=== PATIENT | female | born 1955 | race Caucasian/White ===

== ENCOUNTER → 2016-10-23 | Outpatient (CLI) | payer MEDICARE, OTHER ==
[~2016-10-23] MED LIST: AMIT10TA6 PO; ASPI-556 PO; CITA20TA9 PO; CLON.1 PO; DOCU250C28 PO; FENO160T16 PO; GABA-318 PO; HYDROCODONE; INSU100C4 SQ; INSU100C6; METF1000 PO; OMEP20CA10 PO; SIMV40TA5 PO; TRAM-459 PO; VITA1CAP10 PO
== END | disposition home or self-care (01) ==
LOC: RADPV 09:05
PROVIDERS: ATTEND Hospitalist
DX: N18.3 Chronic kidney disease, stage 3 (moderate) (principal)
CPT/HCPCS: 76770

== ENCOUNTER 2017-03-15 12:52 | Emergency (ER) | payer MEDICARE, OTHER ==
[~2017-03-15] VITALS: Ht 162.6 cm; Wt 111.8 kg
[~2017-03-15 12:52] MED LIST changes: +CLON-570 PO; -CLON.1 PO; -INSU100C6; +INSU100C6 SQ
[2017-03-15] MEDS ORDERED: TRAM50TA4 PO (13:36)
[2017-03-15] MEDS ORDERED: LOPERAMIDE HCL 2 MG CAPSULE PO ONE (13:45)
[2017-03-15] MEDS ORDERED: SODIUM CHLORIDE 0.9% 1,000 ML IV ONE (13:45)
[2017-03-15 14:10] LABS: BASOPHILS % (AUTO) 0.4 % (0.0-2.0); EOSINOPHILS % (AUTO) 1.4 % (1.0-6.0); HEMATOCRIT 40.9 % (36-46); HEMOGLOBIN 13.8 g/dL (12.0-16.0); LYMPHOCYTES # (AUTO) 3.3 K/uL (1.0-4.8); LYMPHOCYTES % (AUTO) 34.1 % (22.0-44.0); MEAN CORPUSCULAR HEMOGLOBIN 30.4 pg (26.0-34.0); MEAN CORPUSCULAR HGB CONC 33.7 G/dL (31.0-37.0); MEAN CORPUSCULAR VOLUME 90 fL (80-100); MONOCYTES # (AUTO) 0.8 K/uL (0.1-1.0); MONOCYTES % (AUTO) 7.8 % (2.0-9.0); NEUTROPHILS # (AUTO) 5.4 K/uL (1.8-7.7); NEUTROPHILS % (AUTO) 56.3 % (40.0-70.0); PLATELET COUNT (AUTO) 168 K/uL (150-450); RED BLOOD CELL COUNT(AUTO) 4.53 MIL/uL (4.00-5.20); RED CELL DISTRIBUTION WIDTH 13.1 % (11.5-14.5); WHITE BLOOD COUNT (AUTO) 9.6 K/uL (4.5-11.0)
[2017-03-15 14:22] LABS: CALCIUM, TOTAL 9.9 mg/dL (8.8-10.5); CREATININE 1.88 mg/dL (0.60-1.30); POTASSIUM 4.3 mmol/L (3.5-5.1)
[2017-03-15] MEDS ORDERED: TraMADol HCL 50 MG TABLET PO ONE (14:30)
[2017-03-15 14:35] LABS: ALBUMIN 3.9 g/dL (3.4-5.0); BILIRUBIN,TOTAL 0.8 mg/dL (0.1-1.0); TOTAL PROTEIN, SERUM 7.7 g/dL (6.4-8.2)
[2017-03-15 15:09] VITALS: BP 96/56
== END 2017-03-15 15:42 | disposition home or self-care (01) ==
LOC: EMS 12:54
DX: R42 Dizziness and giddiness (principal); R19.7 Diarrhea, unspecified; E11.65 Type 2 diabetes mellitus with hyperglycemia; N28.9 Disorder of kidney and ureter, unspecified; I10 Essential (primary) hypertension
CPT/HCPCS: 36415; 71010; 80053; 84484; 85025; 93005; 96360; 99285; J7030

== ENCOUNTER 2018-08-24 22:04 | Emergency (ER) | payer MEDICARE, OTHER ==
[~2018-08-24 22:04] MED LIST changes: +CITA-106 PO; -CITA20TA9 PO; -GABA-318 PO; +GABA600T10 PO; -HYDROCODONE; -METF1000 PO; -TRAM-459 PO; +TRAM50TA4 PO
[2018-08-24 22:44] LABS: GLUCOSE,POINT OF CARE 137 MG/DL (70-110)
== END 2018-08-25 00:23 | disposition left against medical advice (07) ==
LOC: EMS 22:05
DX: S01.111A Laceration without foreign body of right eyelid and periocular area, initial encounter (principal); W19.XXXA Unspecified fall, initial encounter; Y93.89 Activity, other specified; Y92.89 Other specified places as the place of occurrence of the external cause; Y99.8 Other external cause status; Z53.21 Procedure and treatment not carried out due to patient leaving prior to being seen by health care provider

== ENCOUNTER → 2020-08-13 | Outpatient (CLI) | payer MEDICARE, OTHER ==
[~2020-08-13] MED LIST changes: -CITA-106 PO; +CITA-144 PO; -CLON-570 PO; +CLON0.1T2 PO; -OMEP20CA10 PO; +OMEP20CA12 PO; +SIMV-46 PO; -SIMV40TA5 PO
[2020-08-13 09:36] LABS: BASOPHILS % (AUTO) 0.4 % (0.0-2.0); EOSINOPHILS % (AUTO) 1.6 % (1.0-6.0); HEMATOCRIT 39.8 % (36-46); LYMPHOCYTES # (AUTO) 2.2 K/uL (1.0-4.8); LYMPHOCYTES % (AUTO) 24.4 % (22.0-44.0); MEAN CORPUSCULAR HEMOGLOBIN 29.3 pg (26.0-34.0); MEAN CORPUSCULAR HGB CONC 32.8 G/dL (31.0-37.0); MEAN CORPUSCULAR VOLUME 90 fL (80-100); MONOCYTES # (AUTO) 0.9 K/uL (0.1-1.0); MONOCYTES % (AUTO) 9.4 % (2.0-9.0); NEUTROPHILS # (AUTO) 5.8 K/uL (1.8-7.7); NEUTROPHILS % (AUTO) 64.2 % (40.0-70.0); PLATELET COUNT (AUTO) 167 K/uL (150-450); RED BLOOD CELL COUNT(AUTO) 4.44 MIL/uL (4.00-5.20); RED CELL DISTRIBUTION WIDTH 14.2 % (11.5-14.5)
[2020-08-13 09:39] LABS: CREATININE 1.71 mg/dL (0.60-1.30); POTASSIUM 4.2 mmol/L (3.5-5.1)
[2020-08-13 09:40] LABS: APPEARANCE,URINE CLOUDY (CLEAR); BILIRUBIN,URINE NEGATIVE (NEGATIVE); CREATININE,URINE RANDOM 142.8 mg/dL (30.0-125.0); GLUCOSE, URINE (UA) NEGATIVE (NEGATIVE); KETONES,URINE NEGATIVE (NEGATIVE); LEUKOCYTE ESTERASE ,URINE TRACE (NEGATIVE); NITRATE,URINE POSITIVE (NEGATIVE); OCCULT BLOOD,URINE NEGATIVE (NEGATIVE); PROTEIN,URINE TRACE (NEGATIVE); PROTEIN,URINE RANDOM 39 mg/dL (0-11.9)
[2020-08-13 09:40] LABS: ALBUMIN 3.9 g/dL (3.4-5.0); CALCIUM, TOTAL 9.8 mg/dL (8.8-10.5); PHOSPHORUS 4.2 mg/dL (2.5-4.9)
[2020-08-13 09:49] LABS: BACTERIA,URINE Many /HPF (None Seen); RBC,URINE None Seen /HPF (0-2); SQUAMOUS EPITHELIAL CELL,UR Moderate /LPF (None Seen); WBC,URINE 0-2 /HPF (0-5)
== END | disposition home or self-care (01) ==
LOC: LABPV 07:41
PROVIDERS: ATTEND Hospitalist
DX: E11.22 Type 2 diabetes mellitus with diabetic chronic kidney disease (principal); N18.4 Chronic kidney disease, stage 4 (severe); I51.9 Heart disease, unspecified; R80.9 Proteinuria, unspecified
CPT/HCPCS: 80069; 81001; 82043; 82306; 82570; 83036; 83970; 84155; 84156; 84165; 84166; 85025; 86335; 87086

== ENCOUNTER 2021-06-11 05:38 | Day surgery (SDC) | payer MEDICARE, MEDICAID ==
[2021-06-09 12:32] LABS: COVID AG,FIA SOURCE NASAL SWAB
[~2021-06-11] VITALS: Ht 162.6 cm; Wt 115.4 kg
[~2021-06-11 05:38] MED LIST changes: +RINGERS SOLUTION,LACTATED 1,000 ML IV ONE; +RINGERS SOLUTION,LACTATED 500 ML IV ONE
[2021-06-11] MEDS ORDERED: TETRACAINE HCL/PF 0.5% 4 ML OPHTHALMIC SOLUTION OS ONE (05:39)
[2021-06-11] MEDS ORDERED: BALANCED SALT 15 ML OPHTHALMIC IRRIG.SOLN OS ONE (05:39)
[2021-06-11] MEDS ORDERED: CHONDR SULF A SOD/HYALURONATE 1.05 ML KIT IO ONE (05:39)
[2021-06-11] MEDS ORDERED: RINGERS SOLUTION,LACTATED 500 ML IV ONE (05:43)
[2021-06-11] MEDS ORDERED: MOXIFLOXACIN HCL 0.5% 3 ML OPHTHALMIC SOLUTION ONE (05:43)
[2021-06-11] MEDS ORDERED: PHENYLEPHRINE HCL 2.5% 2 ML OPHTHALMIC SOLUTION ONE (05:43)
[2021-06-11 05:57] LABS: COVID AG,FIA SOURCE NASOPHARYNGEAL
[2021-06-11] MEDS ORDERED: BUPIVACAINE HCL/PF 0.75% 10 ML VIAL ONE (06:18)
[2021-06-11] MEDS ORDERED: POVIDONE-IODINE 10% 15 ML SOLUTION UD ONE (06:18)
[2021-06-11] MEDS ORDERED: BALANCED SALT 15 ML OPHTHALMIC IRRIG.SOLN ONE (06:18)
[2021-06-11] MEDS ORDERED: LIDOCAINE/PF 1% 2 ML VIAL ONE ×2 (06:18→06:19)
[2021-06-11] MEDS ORDERED: NEOMYCIN/POLYMYXIN B/DEXAMETH 3.5 GM OPHTHALMIC OINTMENT ONE (06:18)
[2021-06-11] MEDS ORDERED: HYALURONIDASE, HUMAN RECOMB. 150 UNITS/ML ONE (06:19)
[2021-06-11] MEDS: DEXAMETHASONE 0.1% 5 ML OPHTHALMIC SOLUTION OS ONE ×2 (06:26→07:48)
[2021-06-11] MEDS: PHENYLEPHRINE HCL 2.5% 2 ML OPHTHALMIC SOLUTION OS SCH ×3 (06:27→06:39)
[2021-06-11] MEDS: MOXIFLOXACIN HCL 0.5% 3 ML OPHTHALMIC SOLUTION OS SCH ×4 (06:27→07:44)
[2021-06-11] MEDS ORDERED: DEXAMETHASONE SOD PHOS 4 MG/ML VIAL ONE (06:45)
[2021-06-11 06:51] LABS: GLUCOMETER DEV NAME(LOC) SDS.; GLUCOSE,POINT OF CARE 155 MG/DL (70-110)
[2021-06-11] MEDS ORDERED: SODIUM CHLORIDE 0.9% 10 ML ONE (06:54)
[2021-06-11] MEDS ORDERED: AMLO2.5T29 PO (07:53)
[2021-06-11] MEDS ORDERED: AMIT50TA3 PO (07:53)
[2021-06-11] MEDS ORDERED: ATOR40TA71 PO (07:54)
[2021-06-11] MEDS ORDERED: NITR0.4T52 SL (07:58)
[2021-06-11] MEDS ORDERED: SEMA0.25 SQ (07:58)
[2021-06-11] MEDS ORDERED: LEVO25TA9 PO (07:58)
[2021-06-11] MEDS ORDERED: LIDOCAINE/PF 2% 5 ML VIAL IM ONE (12:00)
[2021-06-11] MEDS ORDERED: DiphenhydrAMINE HCL 50 MG/ML VIAL IVP ONE (12:00)
[2021-06-11] MEDS ORDERED: FentaNYL CITRATE PF 100 MCG/2 ML VIAL IVP ONE (12:00)
[2021-06-11] MEDS ORDERED: PROPOFOL 1% 20 ML VIAL IVP ONE (12:00)
[2021-06-11] MEDS ORDERED: MIDAZOLAM HCL 2 MG/2 ML VIAL IVP ONE (12:00)
== END 2021-06-11 08:40 | disposition home or self-care (01) ==
LOC: SURGERY 05:38
PROVIDERS: ATTEND Ophthalmology
DX: H40.53X0 Glaucoma secondary to other eye disorders, bilateral, stage unspecified (principal); E10.3313 Type 1 diabetes mellitus with moderate nonproliferative diabetic retinopathy with macular edema, bilateral; H35.81 Retinal edema; H26.493 Other secondary cataract, bilateral; H43.12 Vitreous hemorrhage, left eye; H04.123 Dry eye syndrome of bilateral lacrimal glands; E10.9 Type 1 diabetes mellitus without complications; I11.0 Hypertensive heart disease with heart failure; I50.9 Heart failure, unspecified; E66.9 Obesity, unspecified; Z20.822 Contact with and (suspected) exposure to COVID-19; Z79.4 Long term (current) use of insulin; Z79.899 Other long term (current) drug therapy; Z87.891 Personal history of nicotine dependence; Z88.8 Allergy status to other drugs, medicaments and biological substances; Z91.040 Latex allergy status; Z96.1 Presence of intraocular lens; Z98.890 Other specified postprocedural states
CPT/HCPCS: 66180; 82962; 87426 ×2; 93005 ×2; C1716; C9803 ×2; J0690; J1200; J2250; J2704; J3010; J3473; J3490 ×3; J7120 ×2; Q9967; J1100

== ENCOUNTER 2021-10-01 05:25 | Day surgery (SDC) | payer MEDICARE, OTHER ==
[~2021-10-01] VITALS: Ht 162.6 cm; Wt 111.8 kg
[~2021-10-01 05:25] MED LIST changes: -AMIT10TA6 PO; +AMLO-257 PO; -ASPI-556 PO; +ATOR40TA71 PO; +BRIM15DR8 OS; +CHOL200059 PO; -CITA-144 PO; -CLON0.1T2 PO; -DOCU250C28 PO; +DULO-114 PO; -FENO160T16 PO; +FURO20 PO; -GABA600T10 PO; -INSU100C4 SQ; -INSU100C6 SQ; +INSU100I3 SQ; +LEVO25TA9 PO; +NITR0.4T52 SL; -RINGERS SOLUTION,LACTATED 1,000 ML IV ONE; -SIMV-46 PO; +TIMO10DR28 OS; -TRAM50TA4 PO; -VITA1CAP10 PO; +[UNRECOGNIZED DRUG - CODE] PO
[2021-10-01] MEDS ORDERED: PROPOFOL 1% 20 ML VIAL IVP ONE (05:26)
[2021-10-01] MEDS ORDERED: TETRACAINE HCL/PF 0.5% 4 ML OPHTHALMIC SOLUTION OD ONE (05:26)
[2021-10-01] MEDS ORDERED: BUPIVACAINE HCL/PF 0.75% 10 ML VIAL CAUDAL ONE (05:26)
[2021-10-01] MEDS ORDERED: POVIDONE-IODINE 10% 15 ML SOLUTION UD TP ONE (05:26)
[2021-10-01] MEDS ORDERED: HYALURONIDASE, HUMAN RECOMB. 150 UNITS/ML ID ONE (05:26)
[2021-10-01] MEDS ORDERED: LIDOCAINE/PF 1% 2 ML VIAL CAUDAL ONE (05:26)
[2021-10-01] MEDS ORDERED: BALANCED SALT 15 ML OPHTHALMIC IRRIG.SOLN IO ONE (05:26)
[2021-10-01] MEDS ORDERED: LIDOCAINE/PF 2% 5 ML VIAL IM ONE (05:26)
[2021-10-01] MEDS ORDERED: NEOMYCIN/POLYMYXIN B/DEXAMETH 3.5 GM OPHTHALMIC OINTMENT OD ONE (05:26)
[2021-10-01] MEDS ORDERED: MOXIFLOXACIN HCL 0.5% 3 ML OPHTHALMIC SOLUTION ONE (05:35)
[2021-10-01] MEDS ORDERED: PHENYLEPHRINE HCL 2.5% 2 ML OPHTHALMIC SOLUTION ONE (05:35)
[2021-10-01] MEDS ORDERED: RINGERS SOLUTION,LACTATED 500 ML IV ONE (05:36)
[2021-10-01] MEDS: MOXIFLOXACIN HCL 0.5% 3 ML OPHTHALMIC SOLUTION OS SCH ×4 (06:05→07:50)
[2021-10-01] MEDS: PHENYLEPHRINE HCL 2.5% 2 ML OPHTHALMIC SOLUTION OS SCH ×3 (06:05→06:21)
[2021-10-01] MEDS ORDERED: BUPIVACAINE HCL/PF 0.75% 10 ML VIAL ONE (06:10)
[2021-10-01] MEDS ORDERED: NEOMYCIN/POLYMYXIN B/DEXAMETH 3.5 GM OPHTHALMIC OINTMENT ONE (06:10)
[2021-10-01] MEDS ORDERED: SODIUM CHLORIDE 0.9% 10 ML ONE (06:10)
[2021-10-01] MEDS ORDERED: HYALURONIDASE, HUMAN RECOMB. 150 UNITS/ML ONE (06:11)
[2021-10-01] MEDS ORDERED: LIDOCAINE/PF 1% 2 ML VIAL IM ONE (06:15)
[2021-10-01 06:16] LABS: COVID AG,FIA SOURCE NASOPHARYNGEAL
[2021-10-01 06:22] LABS: GLUCOMETER DEV NAME(LOC) SDS.; GLUCOSE,POINT OF CARE 223 MG/DL (70-110)
[2021-10-01] MEDS ORDERED: DEXAMETHASONE 0.1% 5 ML OPHTHALMIC SOLUTION OS ONE (06:30)
[2021-10-01] MEDS ORDERED: POVIDONE-IODINE 10% 15 ML SOLUTION UD ONE (06:45)
[2021-10-01] MEDS ORDERED: TETRACAINE HCL/PF 0.5% 4 ML OPHTHALMIC SOLUTION ONE ×2 (06:45→06:46)
[2021-10-01] MEDS ORDERED: FentaNYL CITRATE PF 100 MCG/2 ML VIAL IVP ONE (12:00)
[2021-10-01] MEDS ORDERED: MIDAZOLAM HCL 2 MG/2 ML VIAL IVP ONE (12:00)
== END 2021-10-01 09:10 | disposition home or self-care (01) ==
LOC: SURGERY 05:25
PROVIDERS: ATTEND Ophthalmology
DX: E11.39 Type 2 diabetes mellitus with other diabetic ophthalmic complication (principal); H42 Glaucoma in diseases classified elsewhere; I10 Essential (primary) hypertension; E11.3513 Type 2 diabetes mellitus with proliferative diabetic retinopathy with macular edema, bilateral; Z79.899 Other long term (current) drug therapy; Z88.8 Allergy status to other drugs, medicaments and biological substances; Z98.890 Other specified postprocedural states
CPT/HCPCS: 66184; 82962; 87426; C9803; J0690; J2250; J3010; J3473; J3490 ×2; J7120; J2704

== ENCOUNTER 2022-11-30 19:57 | Emergency (ER) | payer MEDICARE, OTHER ==
[~2022-11-30] VITALS: Ht 175.3 cm; Wt 130.0 kg
[~2022-11-30 19:57] MED LIST changes: +COSO10OS OS; -RINGERS SOLUTION,LACTATED 500 ML IV ONE; -TIMO10DR28 OS
[2022-11-30 20:31] VITALS: BP 126/62; PULSE 74; RESP 17; TEMP 99
== END 2022-11-30 21:28 | disposition left against medical advice (07) ==
LOC: EMS 19:57
DX: Z53.21 Procedure and treatment not carried out due to patient leaving prior to being seen by health care provider (principal)
CPT/HCPCS: 99281; Z7502

== ENCOUNTER 2023-01-26 16:55 | Inpatient (IN) | payer MEDICARE, OTHER ==
[~2023-01-26] VITALS: Ht 157.5 cm; Wt 124.1 kg
[~2023-01-26 16:55] MED LIST changes: -BRIM15DR8 OS; +BRIM5DRO9 OS
[2023-01-26] MEDS ORDERED: DEXTROSE 5%-0.45% SODIUM CHL 1,000 ML IV ONE (17:15)
[2023-01-26] MEDS ORDERED: DEXTROSE 50%-WATER 25 GM/50 ML SYRINGE IVP ONE ×2 (17:15→18:45)
[2023-01-26] MEDS ORDERED: DORZ10DR10 OS (17:20)
[2023-01-26] MEDS ORDERED: DULA4.5P SQ (17:20)
[2023-01-26] MEDS ORDERED: INSU100I24 SQ (17:20)
[2023-01-26] MEDS ORDERED: AMLO10TA55 PO (17:20)
[2023-01-26] MEDS ORDERED: EMPA25TA3 PO (17:20)
[2023-01-26] MEDS ORDERED: DULO-113 PO (17:20)
[2023-01-26 17:33] LABS: CALCIUM, TOTAL 9.6 mg/dL (8.8-10.5); CREATININE 1.18 mg/dL (0.60-1.30); POTASSIUM 4.1 mmol/L (3.5-5.1)
[2023-01-26 17:36] LABS: GLUCOMETER DEV NAME(LOC) ER.6; GLUCOSE,POINT OF CARE 110 MG/DL (70-110)
[2023-01-26 17:41] LABS: TROPONIN I-HIGH SENSITIVITY 17 ng/L (<51)
[2023-01-26 17:59] LABS: ALBUMIN 3.7 g/dL (3.4-5.0); BASOPHILS % (AUTO) 0.4 % (0.0-2.0); BILIRUBIN,TOTAL 0.7 mg/dL (0.1-1.0); EOSINOPHILS % (AUTO) 1.8 % (1.0-6.0); HEMATOCRIT 42.6 % (36-46); LYMPHOCYTES % (AUTO) 14.5 % (22.0-44.0); MEAN CORPUSCULAR HEMOGLOBIN 31.5 pg (26.0-34.0); MEAN CORPUSCULAR HGB CONC 32.9 G/dL (31.0-37.0); MEAN CORPUSCULAR VOLUME 96 fL (80-100); MONOCYTES # (AUTO) 0.5 K/uL (0.1-1.0); MONOCYTES % (AUTO) 6.9 % (2.0-9.0); NEUTROPHILS # (AUTO) 5.2 K/uL (1.8-7.7); NEUTROPHILS % (AUTO) 76.4 % (40.0-70.0); PLATELET COUNT (AUTO) 128 K/uL (150-450); RED BLOOD CELL COUNT(AUTO) 4.45 MIL/uL (4.00-5.20); RED CELL DISTRIBUTION WIDTH 13.9 % (11.5-14.5); TOTAL PROTEIN, SERUM 7.5 g/dL (6.4-8.2); WHITE BLOOD COUNT (AUTO) 6.8 K/uL (4.5-11.0)
[2023-01-26 18:24] LABS: APPEARANCE,URINE CLEAR (CLEAR); BILIRUBIN,URINE NEGATIVE (NEGATIVE); COLOR,URINE LIGHT YELLOW (YELLOW); GLUCOSE, URINE (UA) 300-500 mg/dL (NEGATIVE); KETONES,URINE NEGATIVE (NEGATIVE); LEUKOCYTE ESTERASE ,URINE NEGATIVE (NEGATIVE); NITRATE,URINE NEGATIVE (NEGATIVE); OCCULT BLOOD,URINE NEGATIVE (NEGATIVE); PH,URINE 5.5 (5.0-8.0); PROTEIN,URINE 30-70 mg/dL (NEGATIVE); SPECIFIC GRAVITIY, URINE 1.005 (1.003-1.030); UROBILINOGEN,URINE <=1.0 mg/dL (<=1.0)
[2023-01-26 18:35] LABS: BACTERIA,URINE None Seen /HPF (None Seen); RBC,URINE None Seen /HPF (0-2); SQUAMOUS EPITHELIAL CELL,UR Few /LPF (None Seen); WBC,URINE None Seen /HPF (0-5)
[2023-01-26] MEDS ORDERED: DEXTROSE 50%-WATER 25 GM/50 ML SYRINGE IVP PRN (19:15)
[2023-01-26] MEDS ORDERED: ONDANSETRON HCL 4 MG/2 ML VIAL IVP PRN (19:15)
[2023-01-26 19:21] LABS: GLUCOMETER DEV NAME(LOC) ERT.5; GLUCOSE,POINT OF CARE 138 MG/DL (70-110)
[2023-01-26 19:21] LABS: GLUCOMETER DEV NAME(LOC) ERT.5; GLUCOSE,POINT OF CARE 134 MG/DL (70-110)
[2023-01-26 19:21] LABS: GLUCOMETER DEV NAME(LOC) ERT.5; GLUCOSE,POINT OF CARE 64 MG/DL (70-110)
[2023-01-26 19:21] LABS: GLUCOMETER DEV NAME(LOC) ERT.5; GLUCOSE,POINT OF CARE 80 MG/DL (70-110)
[2023-01-26 19:41] LABS: GLUCOMETER DEV NAME(LOC) ERT.5; GLUCOSE,POINT OF CARE 96 MG/DL (70-110)
[2023-01-26] MEDS ORDERED: HYDROCODONE/ACETAMINOPHEN 5-325 MG TABLET PO ONE (20:30)
[2023-01-26] MEDS: DOCUSATE SODIUM 100 MG CAPSULE PO SCH (21:00)
[2023-01-26 21:31] VITALS: O2SAT 98
[2023-01-26 22:07] LABS: GLUCOMETER DEV NAME(LOC) ERT.5; GLUCOSE,POINT OF CARE 114 MG/DL (70-110)
[2023-01-26] MEDS ORDERED: NITROGLYCERIN 0.4 MG SUBLINGUAL TABLET #25 SL PRN (23:30)
[2023-01-26 23:48] VITALS: BP 193/93; PULSE 71; RESP 20; TEMP 98.4
[2023-01-27] MEDS: SODIUM CHLORIDE 154 MEQ in DEXTROSE 10%-WATER 1,000 ML IV SCH (02:17)
[2023-01-27] MEDS ORDERED: HydrALAZINE HCL 20 MG/ML VIAL IVP PRN (04:30)
[2023-01-27 05:20] VITALS: BP 146/79; PULSE 69; RESP 18; TEMP 98.2
[2023-01-27 06:29] LABS: BASOPHILS % (AUTO) 0.3 % (0.0-2.0); EOSINOPHILS % (AUTO) 2.1 % (1.0-6.0); HEMATOCRIT 39.3 % (36-46); HEMOGLOBIN 12.9 g/dL (12.0-16.0); LYMPHOCYTES # (AUTO) 1.9 K/uL (1.0-4.8); LYMPHOCYTES % (AUTO) 20.7 % (22.0-44.0); MEAN CORPUSCULAR HEMOGLOBIN 31.5 pg (26.0-34.0); MEAN CORPUSCULAR VOLUME 96 fL (80-100); MONOCYTES # (AUTO) 0.9 K/uL (0.1-1.0); MONOCYTES % (AUTO) 10.1 % (2.0-9.0); NEUTROPHILS # (AUTO) 6.2 K/uL (1.8-7.7); NEUTROPHILS % (AUTO) 66.8 % (40.0-70.0); PLATELET COUNT (AUTO) 143 K/uL (150-450); RED BLOOD CELL COUNT(AUTO) 4.11 MIL/uL (4.00-5.20); RED CELL DISTRIBUTION WIDTH 13.5 % (11.5-14.5); WHITE BLOOD COUNT (AUTO) 9.3 K/uL (4.5-11.0)
[2023-01-27 06:41] LABS: CALCIUM, TOTAL 9.1 mg/dL (8.8-10.5); CREATININE 1.24 mg/dL (0.60-1.30); MAGNESIUM 2.4 mg/dL (1.80-2.40); POTASSIUM 4.1 mmol/L (3.5-5.1)
[2023-01-27 08:08] VITALS: BP 112/60; PULSE 75; RESP 20; TEMP 98.6
[2023-01-27] MEDS: LEVOTHYROXINE SODIUM 25 MCG TABLET PO SCH (08:17)
[2023-01-27] MEDS: DULoxetine HCL 60 MG CAPSULE PO SCH (08:27)
[2023-01-27] MEDS: DORZOLAMIDE/TIMOLOL 2-0.5% [22.3-6.8MG/ML] 10 ML OPHTHALMIC SOLUTION OS SCH ×3 (08:27→21:18)
[2023-01-27] MEDS: METHAZOLAMIDE 50 MG TABLET PO SCH ×3 (08:28→21:18)
[2023-01-27] MEDS: ATORVASTATIN CALCIUM 40 MG TABLET PO SCH (08:28)
[2023-01-27] MEDS: AmLODIPine BESYLATE 10 MG TABLET PO SCH (08:29)
[2023-01-27] MEDS: CHOLECALCIFEROL (VIT D3) 2,000 UNITS [50 MCG] TABLET PO SCH (08:30)
[2023-01-27] MEDS: DOCUSATE SODIUM 100 MG CAPSULE PO SCH ×2 (08:33→21:00)
[2023-01-27 11:41] LABS: GLUCOMETER DEV NAME(LOC) 5N.2C; GLUCOSE,POINT OF CARE 128 MG/DL (70-110)
[2023-01-27 11:52] VITALS: BP 135/80; PULSE 75; RESP 20; TEMP 98.2
[2023-01-27 13:41] LABS: GLUCOMETER DEV NAME(LOC) 5N.1C; GLUCOSE,POINT OF CARE 159 MG/DL (70-110)
[2023-01-27] MEDS ORDERED: LORazepam 2 MG/ML VIAL IVP ONE (15:00)
[2023-01-27 19:42] VITALS: BP 130/68; PULSE 69; RESP 18; TEMP 98.5
[2023-01-27 22:17] LABS: ABG BASE EXCESS -0.6 mmol/L (-2.0-3.0); ABG CARBOXYHEMOGLOBIN 1.1 % (0.0-1.5); ABG HCO3 23.9 mmol/L (22.0-26.0); ABG METHEMOGLOBIN 0.3 % (0.0-1.5); ABG OXYGEN CONTENT 18.2 mL/dL (15.0-23.0); ABG OXYGEN SATURATION 94.5 % (95.0-98.0); ABG OXYHEMOGLOBIN 93.2 % (94.0-100.0); ABG PCO2 42 mmHg (35-45); ABG PH 7.384 (7.35-7.450); ABG TOTAL HEMOGLOBIN 13.9 G/dL (12.0-18.0); PO2, ARTERIAL BG 69.3 mmHg (79.0-87.0); SOURCE, BLOOD GAS ARTERIAL; TEMPERATURE, FAHRENHEIT, BG 98.5 FAHREN (96.0-98.6)
[2023-01-27 22:18] LABS: ABG A-A DIFF O2 30.4 mmHg (10-20.0); O2 DEVICE,BLOOD GAS ROOM AIR (ROOM AIR); SITE, BLOOD GAS LFT BRACHIAL
[2023-01-27 22:55] LABS: GLUCOMETER DEV NAME(LOC) 5N.2C; GLUCOSE,POINT OF CARE 136 MG/DL (70-110)
[2023-01-27 22:56] LABS: GLUCOMETER DEV NAME(LOC) 5N.2C; GLUCOSE,POINT OF CARE 199 MG/DL (70-110)
[2023-01-27 22:57] LABS: GLUCOMETER DEV NAME(LOC) 5N.1C; GLUCOSE,POINT OF CARE 145 MG/DL (70-110)
[2023-01-28 00:17] VITALS: BP 121/68; PULSE 68; RESP 18; TEMP 98.6
[2023-01-28] MEDS: SODIUM CHLORIDE 154 MEQ in DEXTROSE 10%-WATER 1,000 ML IV SCH (04:48)
[2023-01-28 05:14] VITALS: BP 126/84; PULSE 68; RESP 19; TEMP 98.5
[2023-01-28] MEDS: LEVOTHYROXINE SODIUM 25 MCG TABLET PO SCH (06:30)
[2023-01-28 06:36] LABS: BASOPHILS % (AUTO) 0.5 % (0.0-2.0); EOSINOPHILS % (AUTO) 2.7 % (1.0-6.0); HEMATOCRIT 38.6 % (36-46); HEMOGLOBIN 12.7 g/dL (12.0-16.0); LYMPHOCYTES # (AUTO) 1.6 K/uL (1.0-4.8); LYMPHOCYTES % (AUTO) 18.9 % (22.0-44.0); MEAN CORPUSCULAR HEMOGLOBIN 31.5 pg (26.0-34.0); MEAN CORPUSCULAR HGB CONC 32.9 G/dL (31.0-37.0); MEAN CORPUSCULAR VOLUME 96 fL (80-100); MONOCYTES # (AUTO) 0.7 K/uL (0.1-1.0); MONOCYTES % (AUTO) 8.2 % (2.0-9.0); NEUTROPHILS # (AUTO) 5.9 K/uL (1.8-7.7); NEUTROPHILS % (AUTO) 69.7 % (40.0-70.0); PLATELET COUNT (AUTO) 130 K/uL (150-450); RED BLOOD CELL COUNT(AUTO) 4.03 MIL/uL (4.00-5.20); RED CELL DISTRIBUTION WIDTH 13.9 % (11.5-14.5); WHITE BLOOD COUNT (AUTO) 8.5 K/uL (4.5-11.0)
[2023-01-28 07:01] LABS: ALBUMIN 2.9 g/dL (3.4-5.0); BILIRUBIN,TOTAL 0.8 mg/dL (0.1-1.0); CALCIUM, TOTAL 9.1 mg/dL (8.8-10.5); CREATININE 1.32 mg/dL (0.60-1.30); POTASSIUM 4.5 mmol/L (3.5-5.1); TOTAL PROTEIN, SERUM 6.3 g/dL (6.4-8.2)
[2023-01-28 07:03] LABS: TROPONIN I-HIGH SENSITIVITY 16 ng/L (<51)
[2023-01-28 07:28] VITALS: BP 128/86; PULSE 70; RESP 20; TEMP 98.4
[2023-01-28] MEDS: HEPARIN SODIUM,PORCINE 5,000 UNITS/ML VIAL SQ SCH ×4 (08:00→23:43)
[2023-01-28] MEDS: AmLODIPine BESYLATE 10 MG TABLET PO SCH (08:37)
[2023-01-28] MEDS: DULoxetine HCL 60 MG CAPSULE PO SCH (08:37)
[2023-01-28] MEDS: CHOLECALCIFEROL (VIT D3) 2,000 UNITS [50 MCG] TABLET PO SCH (08:38)
[2023-01-28] MEDS: ATORVASTATIN CALCIUM 40 MG TABLET PO SCH (08:38)
[2023-01-28] MEDS: METHAZOLAMIDE 50 MG TABLET PO SCH ×3 (08:38→23:55)
[2023-01-28] MEDS: DORZOLAMIDE/TIMOLOL 2-0.5% [22.3-6.8MG/ML] 10 ML OPHTHALMIC SOLUTION OS SCH ×3 (08:40→20:07)
[2023-01-28] MEDS: DOCUSATE SODIUM 100 MG CAPSULE PO SCH ×2 (08:40→20:07)
[2023-01-28] MEDS ORDERED: OMEPRAZOLE 20 MG CAPSULE PO SCH (09:00)
[2023-01-28 11:00] VITALS: BP 124/74; PULSE 68; RESP 18; TEMP 98.6
[2023-01-28 11:26] LABS: GLUCOMETER DEV NAME(LOC) 5S.1B; GLUCOSE,POINT OF CARE 153 MG/DL (70-110)
[2023-01-28 11:26] LABS: GLUCOMETER DEV NAME(LOC) 5N.1C; GLUCOSE,POINT OF CARE 198 MG/DL (70-110)
[2023-01-28 15:15] VITALS: BP 126/78; PULSE 72; RESP 19; TEMP 98.2
[2023-01-28 20:01] VITALS: BP 120/63; PULSE 71; RESP 18; TEMP 98.5
[2023-01-28] MEDS ORDERED: ACETAMINOPHEN 325 MG TABLET PO PRN (21:30)
[2023-01-28 22:01] LABS: GLUCOMETER DEV NAME(LOC) 5N.1C; GLUCOSE,POINT OF CARE 167 MG/DL (70-110)
[2023-01-28 22:06] LABS: GLUCOMETER DEV NAME(LOC) 5S.1B; GLUCOSE,POINT OF CARE 182 MG/DL (70-110)
[2023-01-29] VITALS: BP 112/52; PULSE 68; RESP 16; TEMP 98
[2023-01-29 04:03] VITALS: BP 116/63; PULSE 65; RESP 18; TEMP 98.5
[2023-01-29] MEDS: LEVOTHYROXINE SODIUM 25 MCG TABLET PO SCH (06:14)
[2023-01-29 07:37] VITALS: BP 119/70; PULSE 67; RESP 20; TEMP 98.5
[2023-01-29] MEDS: HEPARIN SODIUM,PORCINE 5,000 UNITS/ML VIAL SQ SCH (08:00)
[2023-01-29] MEDS: DOCUSATE SODIUM 100 MG CAPSULE PO SCH (09:00)
[2023-01-29] MEDS: DULoxetine HCL 60 MG CAPSULE PO SCH (10:14)
[2023-01-29] MEDS: DORZOLAMIDE/TIMOLOL 2-0.5% [22.3-6.8MG/ML] 10 ML OPHTHALMIC SOLUTION OS SCH (10:14)
[2023-01-29] MEDS: ATORVASTATIN CALCIUM 40 MG TABLET PO SCH (10:14)
[2023-01-29] MEDS: AmLODIPine BESYLATE 10 MG TABLET PO SCH (10:15)
[2023-01-29] MEDS: CHOLECALCIFEROL (VIT D3) 2,000 UNITS [50 MCG] TABLET PO SCH (10:15)
[2023-01-29] MEDS: METHAZOLAMIDE 50 MG TABLET PO SCH (10:15)
[2023-01-29 11:22] VITALS: BP 111/75; PULSE 71; RESP 18; TEMP 98
[2023-01-29 11:56] LABS: GLUCOMETER DEV NAME(LOC) 5S.1B; GLUCOSE,POINT OF CARE 162 MG/DL (70-110)
[2023-01-29] MEDS ORDERED: LEVO25TA9 PO (12:14)
[2023-01-29] MEDS ORDERED: CARV3 PO (12:14)
[2023-01-29 12:46] LABS: GLUCOMETER DEV NAME(LOC) ERT.5; GLUCOSE,POINT OF CARE 120 MG/DL (70-110)
[2023-01-29 19:02] LABS: GLUCOMETER DEV NAME(LOC) 5S.2C; GLUCOSE,POINT OF CARE 165 MG/DL (70-110)
== END 2023-01-29 14:00 | disposition home or self-care (01) | DRG 637 ==
LOC: EMS 16:56 → 5S 22:16
PROVIDERS: ADMIT Internal Medicine; ATTEND Internal Medicine
DX: E11.649 Type 2 diabetes mellitus with hypoglycemia without coma (principal); G93.41 Metabolic encephalopathy; I50.33 Acute on chronic diastolic (congestive) heart failure; I13.0 Hypertensive heart and chronic kidney disease with heart failure and stage 1 through stage 4 chronic kidney disease, or unspecified chronic kidney disease; Z68.43 Body mass index [BMI] 50.0-59.9, adult; H57.11 Ocular pain, right eye; T38.3X5A Adverse effect of insulin and oral hypoglycemic [antidiabetic] drugs, initial encounter; F32.A Depression, unspecified; E66.01 Morbid (severe) obesity due to excess calories; I35.0 Nonrheumatic aortic (valve) stenosis; N18.30 Chronic kidney disease, stage 3 unspecified; E11.22 Type 2 diabetes mellitus with diabetic chronic kidney disease; J44.9 Chronic obstructive pulmonary disease, unspecified; Z79.899 Other long term (current) drug therapy; Z88.8 Allergy status to other drugs, medicaments and biological substances; Z91.048 Other nonmedicinal substance allergy status; Y92.89 Other specified places as the place of occurrence of the external cause
CPT/HCPCS: 36600; 70450; 70553; 71045; 71110; 72040; 72125; 80048; 80053; 81001; 82140; 82550; 82805; 82962; 83036; 83735; 83880; 84484; 85025; 93005; 93306; 97116; 97163; 97530; 99291; J1644; J2060; J7131; 36415-L1; 36415-TC